=== PATIENT | female | born 1985 | race Caucasian/White ===

== ENCOUNTER 2022-12-14 20:14 | Emergency (ER) | payer OTHER, SELFPAY ==
[2022-12-14 20:19] VITALS: BP 127/102; PULSE 111; RESP 16; TEMP 36.8; O2SAT 99; BMI 39.1
[2022-12-14 20:26] VITALS: BP 139/90
--- NOTE | 2022-12-14 20:44 | XR_ITS ---
The [address] [address] Patient Name: MCKINLEY BABIN MRN: [id number] date: 1985 Sex: F Assigned Patient Location: ER Current Patient Location: ER Accession/Order Number: [id number] Exam Date: 12/14/2022 20:55 Report Date: 12/14/2022 21:26 At the request of: MATT TORRES Procedure: XR foot LT min 3V EXAM: XR foot LT min 3V HISTORY: pain COMPARISON: None. TECHNIQUE: 2 views FINDINGS: IMPRESSION: Nondisplaced fracture of the mid diaphysis of the fourth metatarsal. Patient is status post open reduction internal fixation of the fifth metatarsal. Approximately 2 mm of the lateral to medial screw of the fifth metatarsal purchases the medial cortex lying within the soft tissues between the fourth and fifth metatarsals. This is adjacent to the fourth metatarsal fracture. The remainder of the osseous structures are unremarkable. Joint spaces are normal. Electronically authenticated by: BETHANY KIM Date: 12/14/2022 21:26
--- NOTE | 2022-12-14 20:45 | ED_ITS ---
HPI - Extremity Injury (Lower) General Chief Complaint: Extremity Injury, Lower Stated Complaint: POSS REBREAK OF FOOT Time Seen by Provider: 12/14/22 20:42 Source: patient Mode of arrival: Wheelchair History of Present Illness HPI Narrative: 37-year-old female presents for pain in her left foot. She was dancing and stepped down and felt pain on the sudden. In September of this year she had broken her 5th metatarsal and had surgery and this is the area of the pain. No other injury was sustained. No ankle pain. It feels like when you crack your knuckle she states. Related Data Previous Rx's Medication Instructions Recorded acetaminophen 300 mg-codeine 30 mg 1 tab PO Q6H PRN pain #20 tabs 12/14/22 tablet ibuprofen 800 mg tablet 800 mg PO Q8H PRN pain #20 tabs 12/14/22 Allergies Allergy/AdvReac Type Severity Reaction Status Date / Time cephalexin [From Keflex] Allergy Unknown Verified 12/14/22 20:25 codeine AdvReac Mild Abdominal Verified 12/14/22 20:25 Pain Review of Systems ROS Narrative A ten point review of systems is negative except as noted above. Exam Narrative Exam Narrative: Nurses note and vital signs reviewed and patient is not hypoxic. General: The patient appears well and in no apparent distress. Patient is resting comfortably on cart. Skin: Warm, dry, no pallor noted. There is no rash noted. Head: Normocephalic, atraumatic Eye: Normal conjunctiva, no drainage Ears, Nose, Mouth, and Throat: oral mucosa is moist. Nares patent. Cardiovascular: Regular Rate and Rhythm Respiratory: Patient is in no distress, no accessory muscle use, lungs are clear to auscultation, no wheezing, rales or rhonchi Back: non-tender GI: nontender Musculoskeletal: . Surgical scar present at the left foot 5th metatarsal area. Skin intact. No bruising or obvious swelling. No ankle tenderness. Neurological: A&O, normal speech Psychiatric: Cooperative Constitutional Vital Signs, click to edit/add: Last Vital Signs Temp 98.3 F 12/14/22 20:19 Pulse 111 H 12/14/22 20:19 Resp 16 12/14/22 20:19 BP 139/90 12/14/22 20:26 Pulse Ox 99 09/09/23 20:19 O2 Del Method Room Air 12/14/22 20:19 Course Vital Signs Vital signs: Vital Signs Temperature 98.3 F 12/14/22 20:19 Pulse Rate 111 H 12/14/22 20:19 Respiratory Rate 16 12/14/22 20:19 Blood Pressure 127/102 H 12/14/22 20:19 Pulse Oximetry 99 12/14/22 20:19 Oxygen Delivery Method Room Air 12/14/22 20:19 Temperature 98.3 F 12/14/22 20:19 Pulse Rate 111 H 12/14/22 20:19 Respiratory Rate 16 12/14/22 20:19 Blood Pressure 139/90 12/14/22 20:26 Pulse Oximetry 99 12/14/22 20:19 Oxygen Delivery Method Room Air 12/14/22 20:19 MDM - Extremity Injury (Lower) MDM Narrative Medical decision making narrative: 4th metatarsal fractures identified. Walking boot applied, application checked by me and found be appropriate, she is neurovascularly intact. 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 Treatment diagnosis and follow-up were discussed with the patient. Differential Diagnosis Differential diagnosis: Likely other (foot fracture, foot sprain) Imaging Data foot x-ray: Radiologist's impression: 4th metatarsal fracture Discharge Plan Discharge Chief Complaint: Extremity Injury, Lower Clinical Impression: Metatarsal fracture Patient Disposition: Home, Self-Care Time of Disposition Decision: 21:51 Condition: Good Mode of Transportation: Private Vehicle Prescriptions / Home Meds: New acetaminophen-codeine 300-30 mg tablet 1 tab PO Q6H PRN (Reason: pain) Qty: 20 0RF Rx Instructions: S92.3 ibuprofen 800 mg tablet 800 mg PO Q8H PRN (Reason: pain) Qty: 20 0RF Instructions: Foot Fracture in Adults (ED) Additional Instructions: follow-up with your field crops harvest machine operator Stand Alone Forms: Portal Instructions Referrals: Physician,Non-Staff, MD [Primary Care Provider] - 1 week
== END 2022-12-14 22:13 | disposition home or self-care (01) ==
PROVIDERS: Emergency Provider Emergency Medicine; Family Provider Family Medicine
DX: S92.342A Displaced fracture of fourth metatarsal bone, left foot, initial encounter for closed fracture (principal); X50.9XXA Other and unspecified overexertion or strenuous movements or postures, initial encounter; Y93.41 Activity, dancing
CPT/HCPCS: 73630; 99283